=== PATIENT | male | born 1960 | race Caucasian/White ===

== ENCOUNTER 2025-02-19 07:31 | Outpatient (CLI) | payer MEDICARE, OTHER | END 2025-02-19 07:32 | disposition home or self-care (01) | LOC: SCSMRI 07:31 | DX: M25.512 Pain in left shoulder (principal); S46.012A Strain of muscle(s) and tendon(s) of the rotator cuff of left shoulder, initial encounter; S46.112A Strain of muscle, fascia and tendon of long head of biceps, left arm, initial encounter; S43.432A Superior glenoid labrum lesion of left shoulder, initial encounter; R60.0 Localized edema; M94.8X1 Other specified disorders of cartilage, shoulder; M25.412 Effusion, left shoulder ==